=== PATIENT | female | born 1995 | race Caucasian/White ===

== ENCOUNTER 2024-06-03 18:57 | Emergency (ER) | payer BC, SELFPAY ==
[2024-06-03 18:58] VITALS: BP 141/69
--- NOTE | 2024-06-03 23:02 | ED.GENMED ---
History of Present Illness
General
Chief Complaint: DVT/Possible Blood Clot
Source: patient
Time Seen by Provider: 06/03/24 22:59
History of Present Illness
History of Present Illness:
29-year-old female with past medical history of Graves' disease, currently 26 weeks presenting to the ER for evaluation after noticing a discomfort sensation in the left lower part of her calf and also stating it felt warm to the touch.
Patient was concerned for DVT prompting her to come to the ER for further evaluation. She is otherwise denying any other symptoms including any related concerns. Patient denies any recent travel, traumatic injuries, focal weakness or
numbness or any other concerns presently.
Past History
Past History
ED Past Medical History: Hypothyroidism
ED Past Surgical History: Other (Thyroidectomy)
Social History
Tobacco: Non-smoker
Alcohol: None
Drug: None
Personal:
Living: with family
Review of Systems
Review of Systems
All Other Systems: ROS reviewed and negative except as documented in HPI and ROS
Phy Exam
Physical Exam
Physical Exam:
GENERAL: Alert , in no apparent distress
EYE: conjunctiva clear
Head: Normocephalic atraumatic
NECK: Supple,
ENT: mmm.
LUNGS: no acute respiratory distress
NEUROLOGICAL: Alert and oriented
SKIN: Warm and dry, skin intact. No overlying erythema or palpable cords
MUSCULOSKELETAL: well perfused. Easily palpable pedal and tibial pulse. Cap refill less than 2 seconds. Sensation grossly intact to light touch
PSYCH: Normal and appropriate interaction.
Scores
Heart Failure Risk
Heart Failure Risk Score: Not Applicable
Heart Score for Chest Pain Patients
STEMI patient?: Not applicable
Withdrawal Assessment of Alcohol
Withdrawal Assessment Completed?: Not applicable
Course
Orders/Labs/Results
Orders:
Orders
06/03/24 19:00
US Legs, Left [US Periph Venous LOWER Ext LT] Urgent
Comment:
Reason For Exam: calf warmth and swelling
Vital Signs
Initial and Last Documented VS:
Initial Vital Signs
Temp Pulse Resp BP Pulse Ox
98.2 F 68 20 141/69 99
06/03/24 18:58 06/03/24 18:58 06/03/24 18:58 06/03/24 18:58 06/03/24 18:58
Last Documented Vital Signs
Temp Pulse Resp BP Pulse Ox
98.2 F 68 20 141/69 99
06/03/24 18:58 06/03/24 18:58 06/03/24 18:58 06/03/24 18:58 06/03/24 18:58
MDM/Problems Addressed
Differential Diagnosis Includes:
DVT, gastric anemias or soleus muscle strain, given intact and equal pulses I do not have concern for PAD, no symptoms to suggest cellulitis
MDM/Problems Addressed:
29-year-old female presenting to the ER for evaluation of discomfort to the left lower leg earlier today. Presently symptoms are fully resolved. Ultrasound was ordered and ultimately negative for DVT. Patient is otherwise hemodynamically stable.
No related concerns. Patient states she was most concerned for DVT. Study was negative. Stable for discharge home and outpatient management as needed.
*Radiology
Radiology exam reviewed: radiology read reviewed
*Pulse Oximetry
Patient hypoxic: no
*Critical Care Note
Total Time (30-74mins, 75-104mins- exclusive of procedures): Not Applicable
ED Attending Note
-
Portions of this chart may have been created with voice recognition software.� Occasional wrong word or��sound alike� substitutions may have occurred due to the inherent limitations of voice recognition software.
Discharge Plan
Departure
Patient Disposition: Home (Routine Discharge)
Date of Disposition: 06/03/24
Time of Disposition: 23:02
Patient with high blood pressure during this ER visit?: No
Discharge Problem:
Lower extremity pain, left
Interventions
Interventions:
*General Assessment Last Done: 06/03/24 18:58
Discharge Date and Time
Print Language: GABONESE
[2024-06-03 23:06] VITALS: BP 110/58
== END 2024-06-03 23:21 | disposition home or self-care (01) ==
LOC: EMR 18:57
PROVIDERS: EMERGENCY PHYSICIAN Emergency Medicine; FAMILY PHYSICIAN Physician Assistant
DX: O99.891 Other specified diseases and conditions complicating pregnancy (principal); M79.662 Pain in left lower leg; O99.282 Endocrine, nutritional and metabolic diseases complicating pregnancy, second trimester; E89.0 Postprocedural hypothyroidism; Z3A.26 26 weeks gestation of pregnancy
CPT/HCPCS: 99284; 93971

== ENCOUNTER → 2024-07-28 10:21 | Outpatient (REF) | payer BC, SELFPAY | LOC: PNTC 10:21 | PROVIDERS: ATTENDING PHYSICIAN Obstetrics & Gynecology | DX: O99.283 Endocrine, nutritional and metabolic diseases complicating pregnancy, third trimester (principal) | CPT/HCPCS: 59025; 76815 ==

== ENCOUNTER → 2024-08-04 10:01 | Outpatient (REF) | payer BC, SELFPAY | LOC: PNTC 10:01 | PROVIDERS: ATTENDING PHYSICIAN Obstetrics & Gynecology | DX: O99.280 Endocrine, nutritional and metabolic diseases complicating pregnancy, unspecified trimester (principal) | CPT/HCPCS: 59025; 76815 ==

== ENCOUNTER → 2024-08-11 10:36 | Outpatient (REF) | payer BC, SELFPAY | LOC: PNTC 10:36 | PROVIDERS: ATTENDING PHYSICIAN Obstetrics & Gynecology | DX: O99.280 Endocrine, nutritional and metabolic diseases complicating pregnancy, unspecified trimester (principal); E05.90 Thyrotoxicosis, unspecified without thyrotoxic crisis or storm | CPT/HCPCS: 59025; 76816 ==

== ENCOUNTER → 2024-08-18 08:31 | Outpatient (REF) | payer BC, SELFPAY | LOC: PNTC 08:31 | PROVIDERS: ATTENDING PHYSICIAN Obstetrics & Gynecology | DX: E05.00 Thyrotoxicosis with diffuse goiter without thyrotoxic crisis or storm (principal) | CPT/HCPCS: 59025; 76815 ==

== ENCOUNTER → 2024-08-25 10:02 | Outpatient (REF) | payer BC, SELFPAY | LOC: PNTC 10:02 | PROVIDERS: ATTENDING PHYSICIAN Obstetrics & Gynecology | DX: O99.280 Endocrine, nutritional and metabolic diseases complicating pregnancy, unspecified trimester (principal) | CPT/HCPCS: 59025; 76815 ==

== ENCOUNTER → 2024-09-01 09:58 | Outpatient (REF) | payer BC, SELFPAY | LOC: PNTC 09:58 | PROVIDERS: ATTENDING PHYSICIAN Obstetrics & Gynecology | DX: O99.280 Endocrine, nutritional and metabolic diseases complicating pregnancy, unspecified trimester (principal) | CPT/HCPCS: 59025; 76815 ==

== ENCOUNTER → 2024-09-08 10:03 | Outpatient (REF) | payer BC, SELFPAY | LOC: PNTC 10:03 | PROVIDERS: ATTENDING PHYSICIAN Obstetrics & Gynecology | DX: E05.00 Thyrotoxicosis with diffuse goiter without thyrotoxic crisis or storm (principal) | CPT/HCPCS: 59025 ==

== ENCOUNTER 2024-09-14 19:33 | Inpatient (IN) | payer BC, SELFPAY ==
[2024-09-14 19:59] VITALS: BP 127/73; BMI 31.0
[2024-09-14 20:13] LABS: % Basophils 0.4 % (0-2); % Eosinophils 0.4 % (0-6); % Lymphocytes 16.9 % (20.5-51.1); % Monocytes 5.9 % (1.7-9.3); % Neutrophils 75.4 % (42.2-75.2); Absolute Immature Granulocytes 0.1 10^3/uL (0-0.05); Absolute Lymphocytes 1.7 10^3/uL (1.2-3.4); Absolute Monocytes 0.6 10^3/uL (0.1-0.6); Absolute Neutrophils 7.3 10^3/uL (1.4-6.5); Hematocrit 38.5 % (37.0-47.0); Mean Corp Hgb Conc. 36.4 g/dL (33.0-37.0); Mean Corpuscular Hgb 33.1 pg (27.0-31.0); Mean Platelet Volume 10.4 fL (7.4-10.4); Nucleated Red Blood Cells % 0 %; Platelet Count 205 10^3/uL (130-400); Red Blood Cell Count 4.23 10^6/uL (4.20-5.40); Red Cell Dist. Width 12.3 % (11.5-14.5); White Blood Cell Count 9.7 10^3/uL (4.8-10.8)
[2024-09-14] MEDS: LR 1000 IV (20:21)
[2024-09-15] MEDS: PITOCIN 30 UNITS/NSS 500 ML IV (03:00)
[2024-09-15] MEDS: LR 1000 IV ×2 (05:04→13:35)
[2024-09-15] MEDS: SYNTHROID 175 MCG PO (06:02)
[2024-09-15] MEDS: PRENATAL PLUS PO (08:00)
[2024-09-15] MEDS: STADOL 1 MG IV (10:15)
[2024-09-15] MEDS: SUBLIMAZE 100 MCG EPIDURAL (13:32)
[2024-09-15] MEDS: FENTANYL/BUPIVACAINE 100 EPIDURAL (13:33)
[2024-09-15] MEDS: MOTRIN 600 MG PO (21:46)
[2024-09-16 04:37] LABS: Hematocrit 32.6 % (37.0-47.0); Hemoglobin 11.4 g/dL (12.0-16.0)
[2024-09-16] MEDS: TYLENOL 650 MG PO (05:26)
[2024-09-16] MEDS: SYNTHROID PO (06:12)
[2024-09-16] MEDS: SYNTHROID 88 MCG PO (06:22)
[2024-09-16] MEDS: PRENATAL PLUS 1 TABLET PO (08:12)
[2024-09-16] MEDS: MOTRIN 600 MG PO ×3 (08:12→21:35)
[2024-09-16] MEDS: SENOKOT-S 1 TABLET PO (08:12)
[2024-09-16 13:12] LABS: Syphilis/T. pallidum Ab Reflex Negative (Negative)
[2024-09-17] MEDS: MOTRIN 600 MG PO (05:24)
[2024-09-17] MEDS: SYNTHROID PO (07:05)
[2024-09-17] MEDS: PRENATAL PLUS 1 TABLET PO (08:41)
[2024-09-17] MEDS: SENOKOT-S 1 TABLET PO (08:41)
== END 2024-09-17 12:35 | disposition home or self-care (01) | DRG 807 ==
LOC: LDRP 19:33
PROVIDERS: Student in an Organized Health Care Education/Training Program; ADMITTING PHYSICIAN Obstetrics & Gynecology
PROC: 3E033VJ Introduction of Other Hormone into Peripheral Vein, Percutaneous Approach (ICD-10-PCS; 2024-09-14)
PROC: 0UQMXZZ Repair Vulva, External Approach (ICD-10-PCS; 2024-09-15)
PROC: 10E0XZZ Delivery of Products of Conception, External Approach (ICD-10-PCS; 2024-09-15)
PROC: 0KQM0ZZ Repair Perineum Muscle, Open Approach (ICD-10-PCS; 2024-09-15)
DX: O48.0 Post-term pregnancy (principal); Z37.0 Single live birth; Z3A.40 40 weeks gestation of pregnancy; O70.1 Second degree perineal laceration during delivery; E05.00 Thyrotoxicosis with diffuse goiter without thyrotoxic crisis or storm; Z79.890 Hormone replacement therapy; E89.0 Postprocedural hypothyroidism; O99.284 Endocrine, nutritional and metabolic diseases complicating childbirth; Z28.310 Unvaccinated for COVID-19
CPT/HCPCS: 76815; 85014; 85018; 85025; 86780; 86850; 86900; 86901